=== PATIENT | male | born 1980 | race African-American/Black ===

== ENCOUNTER 2016-10-07 21:00 | Emergency (ER) | payer SELFPAY ==
[2016-10-07 21:41] VITALS: BP 144/108
--- NOTE | 2016-10-07 23:13 | EDM.PDOC ---
ED HPI GENERAL MEDICAL PROBLEM - General Chief Complaint: General Stated Complaint: HANDS ARE GOING TIGHT FOR NO REASON Time Seen by Provider: 10/07/16 21:40 Source of Information: Reports: Patient, Family History Limitations: Reports: No Limitations - History of Present Illness INITIAL COMMENTS - FREE TEXT/NARRATIVE: This is a 36-year-old male. He works in a refrigeration unit and he is noted over the last several months the reason the refrigeration unit and his hands get cold when he gets out into the warmth is hands will swell at times they feel puffy and tight. He also was noted this during the winter months as well. He denies any numbness or tingling in the fingers. But because of his feeling of tightness in his hands he comes to the ER for evaluation. States he still has full function of his hands they just feel tight. He denies any other acute symptoms at this time. He has no history of Raynauds. - Related Data Allergies Allergy/AdvReac Type Severity Reaction Status Date / Time Penicillins Allergy Severe Rash Verified 10/07/16 21:42 Home Meds: Home Meds Topiramate 100 mg PO BEDTIME 10/15/14 [History] Past Medical History Cardiovascular History: Reports: Hypertension Other Musculoskeletal History: tendon repair Psychiatric History: Reports: Anxiety, Depression Social & Family History - Tobacco Use Smoking Status *Q: Never Smoker Second Hand Smoke Exposure: No - Caffeine Use Caffeine Use: Reports: Coffee - Alcohol Use Days Per Week of Alcohol Use: 2 Number of Drinks Per Day: 1 Total Drinks Per Week: 2 - Recreational Drug Use Recreational Drug Use: Yes Drug Use in Last 12 Months: Yes Recreational Drug Type: Reports: Marijuana/Hashish Recreational Drug Use Frequency: Binges Recreational Drug Last Use: yesterday - Living Situation & Occupation Living situation: Reports: Single Occupation: Employed ED ROS GENERAL - Review of Systems Review Of Systems: See Below Constitutional: Denies: Fever, Chills HEENT: Reports: No Symptoms Respiratory: Reports: No Symptoms Cardiovascular: Reports: No Symptoms Endocrine: Reports: No Symptoms GI/Abdominal: Reports: No Symptoms : Reports: No Symptoms Musculoskeletal: Reports: Other (As per history of present illness) Skin: Reports: Other (As per history of present illness) Neurological: Reports: No Symptoms Psychiatric: Reports: No Symptoms Hematologic/Lymphatic: Reports: No Symptoms ED EXAM, GENERAL - Physical Exam Exam: See Below Exam Limited By: No Limitations General Appearance: Alert, WD/WN, No Apparent Distress Eye Exam: Bilateral Eye: Normal Inspection Ears: Normal External Exam Nose: Normal Inspection Throat/Mouth: Normal Inspection Head: Normocephalic Neck: Supple Respiratory/Chest: No Respiratory Distress Back Exam: Full Range of Motion Extremities: Normal Inspection, Normal Range of Motion, Other (Both hands appear to be supple they're not tight or swollen, full range of motion of both of his wrists, able to move his digits without difficulty and make a fist without difficulty and denies any pain, neurovascular is intact in all 10 digits ) Neurological: Alert, Oriented Psychiatric: Normal Affect, Normal Mood Skin Exam: Warm, Dry Course - Vital Signs Last Recorded V/S: Last Vital Signs Temp 98.7 F 10/07/16 21:37 Pulse 76 10/07/16 21:37 Resp 20 10/07/16 21:37 BP 144/108 H 10/07/16 21:37 Pulse Ox 100 10/07/16 21:37 Departure - Departure Time of Disposition: 23:11 Disposition: Home, Self-Care 01 Condition: Good Clinical Impression: Bilateral hand swelling Cold exposure Qualifiers: Encounter type: initial encounter Qualified Code(s): T69.9XXA - Effect of reduced temperature, unspecified, initial encounter - Discharge Information Forms: ED Department Discharge Additional Instructions: When going into the freezer be certain to wear gloves so your hands do not get cold and have the reaction of swelling when you get into the warm environment, recheck with your doctor regarding your blood pressure, return to the ER if needed
== END 2016-10-07 23:24 | disposition home or self-care (01) ==
LOC: JD.ED 21:00
DX: T69.9XXA Effect of reduced temperature, unspecified, initial encounter (principal); M79.89 Other specified soft tissue disorders; I10 Essential (primary) hypertension; Z88.0 Allergy status to penicillin; W93.2XXA Prolonged exposure in deep freeze unit or refrigerator, initial encounter
CPT/HCPCS: 99282; 99283

== ENCOUNTER 2016-12-05 17:37 | Emergency (ER) | payer SELFPAY ==
[2016-12-05 17:46] VITALS: BP 134/108
--- NOTE | 2016-12-05 18:05 | EDM.PDOC ---
ED HPI GENERAL MEDICAL PROBLEM - General Chief Complaint: Neuro Symptoms/Deficits Stated Complaint: HAND SPASM Time Seen by Provider: 12/05/16 17:57 Source of Information: Reports: Patient History Limitations: Reports: No Limitations - History of Present Illness INITIAL COMMENTS - FREE TEXT/NARRATIVE: 36-year-old male presents to the ED due to severe cramping of his hands on intermittent basis. It occurred today it's occurred about a week ago and about 6 months ago. Tenderness development of severe cramping of his fingers to the point that it's difficult to open up his hand to get the fingers to back into normal position. The cramps are extremely painful. It can involve any one of his fingers or thumbs. He doesn't seem to get cramps in his abdomen back muscles or calf musculature. Diet appears adequate. Appears to be well hydrated no recent illness that would cause him to lose potassium or other electrolytes. Only medication he takes is topiramate 100 mg at bedtime. Interestingly he was off this medication over the weekend started again last night. Symptoms started today. Topiramate can cause hypokalemia. Onset: Today, Sudden, Other (Has had problems intermittently for the last 6 or 8 months. No specific reason for the hands to be cramping up.) Onset Date: 12/05/16 Duration: Minutes:, Resolved Prior to Arrival Location: Reports: Upper Extremity, Left, Upper Extremity, Right Quality: Reports: Ache, Other (Severe cramping in his fingers and thumbs to the point that they ball up or Hyperflex which is extremely painful.) Severity: Severe (It is happened on about 6 occasions today.) Improves with: Reports: None Worsens with: Reports: None Context: Reports: Activity. Denies: Exercise, Lifting, Sick Contact, Trauma, Other Associated Symptoms: Reports: No Other Symptoms, Other Treatments SALES OPERATIONS: Reports: Other (see below) (Does not get cramping any other tissues. None) - Related Data Allergies Allergy/AdvReac Type Severity Reaction Status Date / Time Penicillins Allergy Severe Rash Verified 10/07/16 21:42 Home Meds: Home Meds Topiramate 100 mg PO BEDTIME 10/15/14 [History] Past Medical History Cardiovascular History: Reports: Hypertension Other Musculoskeletal History: tendon repair Psychiatric History: Reports: Anxiety, Depression Social & Family History - Tobacco Use Smoking Status *Q: Never Smoker Second Hand Smoke Exposure: No - Caffeine Use Caffeine Use: Reports: Coffee - Alcohol Use Days Per Week of Alcohol Use: 2 Number of Drinks Per Day: 1 Total Drinks Per Week: 2 - Recreational Drug Use Recreational Drug Use: Yes Drug Use in Last 12 Months: Yes Recreational Drug Type: Reports: Marijuana/Hashish Recreational Drug Use Frequency: Binges Recreational Drug Last Use: yesterday - Living Situation & Occupation Living situation: Reports: Single Occupation: Employed ED ROS GENERAL - Review of Systems Review Of Systems: See Below Constitutional: Denies: Fever, Chills, Malaise, Weakness, Fatigue, Night Sweats , Diaphoresis, Decreased Appetite, Weight Loss HEENT: Reports: No Symptoms Respiratory: Reports: No Symptoms Cardiovascular: Reports: No Symptoms Endocrine: Reports: No Symptoms GI/Abdominal: Reports: No Symptoms : Reports: No Symptoms Musculoskeletal: Reports: Other (As above severe muscle spasms in his hands and fingers. The spontaneously go into hyperflexion which is painful.) Skin: Reports: No Symptoms Neurological: Reports: No Symptoms Psychiatric: Reports: No Symptoms Hematologic/Lymphatic: Reports: No Symptoms ED EXAM, NEURO - Physical Exam Exam: See Below Exam Limited By: No Limitations General Appearance: Alert, WD/WN, No Apparent Distress Throat/Mouth: Normal Inspection, Normal Lips, Normal Teeth, Normal Oropharynx Head Exam: Atraumatic, Normocephalic Neck: Normal Inspection, Supple, Non-Tender, Full Range of Motion. No: Lymphadenopathy (L), Lymphadenopathy (R) Respiratory/Chest: No Respiratory Distress, Lungs Clear, Normal Breath Sounds, No Accessory Muscle Use Cardiovascular: Normal Peripheral Pulses, Regular Rate, Rhythm, No Edema, No Murmur GI/Abdominal: Normal Bowel Sounds, Soft, Non-Tender, No Organomegaly, No Distention Neurological: Alert, Normal Mood/Affect, Normal Dorsiflexion, CN II-XII Intact, Normal Plantar Flexion, Normal Reflexes, No Motor/Sensory Deficits, Oriented x 3 , Other (At present he can open and close his hands with little to no difficulty. No spasticity appreciated at this time.) Back Exam: Normal Inspection, Full Range of Motion Extremities: Normal Inspection, Normal Range of Motion, Non-Tender, No Pedal Edema, Normal Capillary Refill Psychiatric: Normal Affect, Normal Mood Skin Exam: Warm, Dry, Intact, Normal Color, No Rash Course - Vital Signs Last Recorded V/S: Last Vital Signs Temp 36.4 C 12/05/16 17:43 Pulse 88 12/05/16 17:43 Resp 19 12/05/16 17:43 BP 134/108 H 12/05/16 17:43 Pulse Ox 100 12/05/16 17:43 - Orders/Labs/Meds Orders: Active Orders 24 hr Category Date Time Status CALCIUM, IONIZED [REF] Stat Lab 12/05/16 18:10 Received Labs: Laboratory Tests 12/05/16 12/05/16 Range/Units 18:10 18:10 WBC 4.42 (4.23-9.07) K/mm3 RBC 5.43 (4.63-6.08) M/mm3 Hgb 16.0 (13.7-17.5) gm/L Hct 45.6 (40.1-51.0) % MCV 84.0 (79.0-92.2) fl MCH 29.5 (25.7-32.2) pg MCHC 35.1 (32.2-35.5) g/dl RDW Std Deviation 43.0 (35.1-43.9) fL Plt Count 212 (163-337) K/mm3 MPV 9.2 L (9.4-12.3) fl Neutrophils % (Manual) 64 H (40-60) % Band Neutrophils % 0 (0-10) % Lymphocytes % (Manual) 27 (20-40) % Atypical Lymphs % 1 % Monocytes % (Manual) 6 (2-10) % Eosinophils % (Manual) 1 (0.8-7.0) % Basophils % (Manual) 1 (0.2-1.2) Toxic Granulation 1+ slight Platelet Estimate Adequate Plt Morphology Comment Normal RBC Morph Comment Normal Sodium 137 (136-145) mEq/L Potassium 3.9 (3.5-5.1) mEq/L Chloride 102 (98-107) mEq/L Carbon Dioxide 25 (21-32) mEq/L Anion Gap 13.9 (5-15) BUN 18 (7-18) mg/dL Creatinine 1.2 (0.7-1.3) mg/dL Est Cr Clr Drug Dosing 95.20 mL/min Estimated GFR (MDRD) > 60 (>60) mL/min BUN/Creatinine Ratio 15.0 (14-18) Glucose 93 (74-106) mg/dL Calcium 8.9 (8.5-10.1) mg/dL Magnesium 1.7 L (1.8-2.4) mg/dl Total Bilirubin 0.5 (0.2-1.0) mg/dL AST 21 (15-37) U/L ALT 34 (16-63) U/L Alkaline Phosphatase 89 (46-116) U/L Total Protein 8.4 H (6.4-8.2) g/dl Albumin 4.1 (3.4-5.0) g/dl Globulin 4.3 gm/dL Albumin/Globulin Ratio 1.0 (1-2) TSH 3rd Generation 1.161 (0.358-3.74) uIU/mL - Radiology Interpretation Free Text/Narrative:: 36-year-old male presents the ED with severe cramping of his hands bilaterally. This is happened quite a few times a day and is happened a couple times in the past over the last 6 months. Never gets cramping anywhere else only in his hands. States the cramps are severely painful and he is to try and pull finger or thumb back into its normal position but sometimes it'll go right back into the cramping position. This usually is an indication of hyper or hyperkalemia or hypocalcemia. Plan will be to have routine labs done including an ionized calcium level. - Re-Assessments/Exams Free Text/Narrative Re-Assessment/Exam: 12/05/16 19:07 .hematology is normal. Chemistry is completely normal other than a low serum magnesium at 1.7. Patient advised to purchase a multivitamin containing zinc and a separate magnesium oxide supplement such as 400 mg tablet once a day. He appears to maintain his hydration adequately and does drink Gatorade and Powerade etc. Whether or not his Topamax medication is contributing to the muscle cramping is unclear. This seems to be somewhat related as he was off it over the weekend took his first tablet last night and developed symptoms today. Only time will tell if similar type reactions occur after being off of it for a period of time. Departure - Departure Time of Disposition: 19:05 Disposition: Home, Self-Care 01 Condition: Fair Clinical Impression: Muscle cramps - Discharge Information Referrals: PCP,None [Primary Care Provider] - Forms: ED Department Discharge Additional Instructions: Evaluation the emergency room today in regards to severe cramping pains that are occurring in the hands intermittently today and have been problematic off and on in the past. This is most often due to low potassium or dehydration or can be from low or high calcium levels etc. Lab work today identified low serum magnesium levels and zinc levels. I suggest a multivitamin once a day with zinc. You may have to buy i.e. Magnesium supplement such as magnesium oxide 400 mg tablet once a day. I would suggest [facility] is your best source as most of the time these medications contain what they say they do. - My Orders Last 24 Hours: My Active Orders 12/05/16 18:10 CALCIUM, IONIZED [REF] Stat - Assessment/Plan Last 24 Hours: My Active Orders 12/05/16 18:10 CALCIUM, IONIZED [REF] Stat
== END 2016-12-05 19:15 | disposition home or self-care (01) ==
LOC: JD.ED 17:37
DX: R25.2 Cramp and spasm (principal); I10 Essential (primary) hypertension; F41.9 Anxiety disorder, unspecified; F32.9 Major depressive disorder, single episode, unspecified; Z88.0 Allergy status to penicillin
CPT/HCPCS: 36415; 80053; 82330; 83735; 84443; 85025; 99283; 99284

== ENCOUNTER 2017-12-08 10:19 | Emergency (ER) | payer OTHER ==
[2017-12-08 10:57] VITALS: BP 137/104
[2017-12-08] MEDS ORDERED: Ketorolac 60 MG/2 ML SDV IM ONE (12:05)
[2017-12-08] MEDS ORDERED: Diazepam 5 MG Tab PO ONE (12:05)
[2017-12-08] MEDS ORDERED: HYDROmorphone 1 MG/ML Syringe IM ONE (12:05)
--- NOTE | 2017-12-08 13:31 | EDM.PDOC ---
ED HPI GENERAL MEDICAL PROBLEM - General Chief Complaint: Back Pain or Injury Stated Complaint: BACK PAIN Time Seen by Provider: 12/08/17 12:13 Source of Information: Reports: Patient History Limitations: Reports: No Limitations - History of Present Illness INITIAL COMMENTS - FREE TEXT/NARRATIVE: 37-year-old male presents for evaluation and treatment of back pain. Patient reports he was helping lift a washing machine this morning. Reports that he was lifting a majority of the weight. He reports feeling a pop in his back and having instant pain. States the pain is primarily on the left side of his back with shooting pain into his right leg. Worse with movement. He is now experiencing pain to his left leg as well. No numbness or tingling into the legs. No urinary incontinence or stool incontinence. This occurred around 0945 this morning. No treatments prior to arrival in the ED. He has no history of any back problems. Lower Back Pain Score (Numeric/FACES): 7 - Related Data Allergies Allergy/AdvReac Type Severity Reaction Status Date / Time Penicillins Allergy Severe Rash Verified 12/08/17 10:53 Home Meds: Home Meds Topiramate 100 mg PO DAILY 10/15/14 [History] Hydrocodone/Acetaminophen [Hydrocodon-Acetaminophen 5-325] 1 each PO Q4HR PRN # 15 tablet 12/08/17 [Rx] Orphenadrine [Norflex] 100 mg PO BID PRN #20 tab.er 12/08/17 [Rx] Past Medical History Cardiovascular History: Reports: Hypertension Musculoskeletal History: Reports: Other (See Below) Other Musculoskeletal History: tendon repair, left hand Psychiatric History: Reports: Anxiety, Depression Social & Family History - Tobacco Use Smoking Status *Q: Never Smoker Second Hand Smoke Exposure: No - Caffeine Use Caffeine Use: Reports: None - Alcohol Use Days Per Week of Alcohol Use: 7 Number of Drinks Per Day: 2 Total Drinks Per Week: 14 - Recreational Drug Use Recreational Drug Use: Yes Recreational Drug Type: Reports: Marijuana/Hashish Recreational Drug Use Frequency: Weekly - Living Situation & Occupation Living situation: Reports: Single Occupation: Employed ED ROS GENERAL - Review of Systems Review Of Systems: See Below GI/Abdominal: Denies: Stool Incontinence : Denies: Incontinence Musculoskeletal: Reports: Back Pain (low back right >> left). Denies: Neck Pain Neurological: Denies: Numbness, Tingling ED EXAM,LOWER BACK PAIN/INJURY - Physical Exam Exam: See Below Exam Limited By: No Limitations General Appearance: Alert, WD/WN, Mild Distress Respiratory/Chest: No Respiratory Distress, Lungs Clear, Normal Breath Sounds Cardiovascular: Normal Peripheral Pulses, Regular Rate, Rhythm, No Murmur Back Exam: Normal Inspection, Muscle Spasm (right lumbar), Paraspinal Tenderness (bilateral right >> left L2 to the sacrum), Vertebral Tenderness (L2 to the sacrum), Other (ROM testing deferred due to pain) Extremities: Normal Inspection Neurological: Alert, Normal Mood/Affect, Normal Dorsiflexion, Normal Plantar Flexion, Straight Leg Raise (L), Straight Leg Raise (R) Psychiatric: Normal Affect, Normal Mood Skin Exam: Warm, Dry, Normal Color Course - Vital Signs Last Recorded V/S: Last Vital Signs Temp 98.3 F 12/08/17 10:54 Pulse 82 12/08/17 10:54 Resp 18 12/08/17 10:54 BP 137/104 H 12/08/17 10:54 Pulse Ox 99 12/08/17 10:54 - Orders/Labs/Meds Meds: Medications Discontinued Medications Generic Name Dose Route Start Last Admin Trade Name Freq PRN Reason Stop Dose Admin Diazepam 5 mg 12/08/17 12:05 12/08/17 12:32 Valium. PO 12/08/17 12:06 5 mg ONETIME ONE Administration Hydromorphone HCl 1 mg 12/08/17 12:05 12/08/17 12:31 Dilaudid IM 12/08/17 12:06 1 mg ONETIME ONE Administration Ketorolac Tromethamine 60 mg 12/08/17 12:05 12/08/17 12:32 Toradol IM 12/08/17 12:06 60 mg ONETIME ONE Administration - Re-Assessments/Exams Free Text/Narrative Re-Assessment/Exam: 12/08/17 13:24 Discussed with patient we could x-ray him, however, without any recent injury to the bones is likely will not show any additional findings. He likely has a bulging disc, possibly herniated, would need MRI for further evaluation. Here in the ED he agrees to pain management. I will then have a follow-up with his primary in about a week and if his pain present and may consider an MRI at that time and physical therapy. Checked on the patient, he is feeling improved but continues to have some discomfort. He would like to go home, declined any further medications for pain in the ED. Recommend follow-up in a week with his primary care provider. Will give some muscle relaxers a few pain pills and encouraged to take an NSAID. Discharge instructions as documented. Departure - Departure Time of Disposition: 13:24 Disposition: Home, Self-Care 01 Condition: Fair Clinical Impression: Low back pain, Muscle spasm - Discharge Information *PRESCRIPTION DRUG MONITORING PROGRAM REVIEWED*: No *COPY OF PRESCRIPTION DRUG MONITORING REPORT IN PATIENT JUVENCIO: No Prescriptions: Hydrocodone/Acetaminophen [Hydrocodon-Acetaminophen 5-325] 1 each PO Q4HR PRN # 15 tablet PRN Reason: Pain Orphenadrine [Norflex] 100 mg PO BID PRN #20 tab.er PRN Reason: Muscle Spasm Instructions: Muscle Cramps and Spasms, [id number], Back Pain, Adult Referrals: PCP,None [Primary Care Provider] - Sara De La Rosa NP [Ordering Only Provider] - Forms: ED Department Discharge Additional Instructions: Recommend Aleve twice a day. may take Norflex 1 tab twice a day as needed for muscle pain and spasms. you were given medication in the ER that can affect your ability to drive and operate machinery. Do not drive or Operative machinery within 10 hours of taking prescription narcotic pain medication. Pain not relieved by Aleve and Norflex, may take Axtell 1 tab every 4-6 hours. Axtell is habit-forming, take as little as needed to control your pain. Do not drive or operate machinery within 10 hours of taking Axtell. Also recommend using moist heat, or topical products such as Icyhot or BenGay for additional pain relief. Follow up with your primary care provider in one week for recheck of your symptoms. If your symptoms persist may need to consider something like physical therapy or possibly an MRI. Rest but do not be completely immobile. Activity as tolerated. Please return to the ER if your symptoms change or worsen.
== END 2017-12-08 13:56 | disposition home or self-care (01) ==
LOC: JD.ED 10:19
DX: M62.830 Muscle spasm of back (principal); I10 Essential (primary) hypertension; Z88.0 Allergy status to penicillin
CPT/HCPCS: 96372; 99283; A9270; J1170; J1885